=== PATIENT | male | born 1990 | race American Indian/Alaskan Native ===

== ENCOUNTER 2018-07-19 20:10 | Emergency (ER) | payer SELFPAY ==
[2018-07-19] MEDS ORDERED: ZOFRAN ODT PO ONE (20:45)
[2018-07-19 20:46] VITALS: BP 148/82
--- NOTE | 2018-07-19 20:48 | Emergency Department Report ---
Blank Doc - Documentation Documentation: 27 y/o male with N/V/D and abd pain all day. Smoke weed every day. Feels weak. ordered: N/V/D protocol
[2018-07-19] MEDS ORDERED: ZOFRAN ODT ONE (20:49)
== END 2018-07-19 22:05 ==
LOC: ED 20:10
DX: R53.1 Weakness (principal); Z53.21 Procedure and treatment not carried out due to patient leaving prior to being seen by health care provider
CPT/HCPCS: Q0162

== ENCOUNTER 2019-01-24 21:04 | Emergency (ER) | payer SELFPAY ==
[2019-01-24] MEDS ORDERED: ONDANSETRON 4 MG/2 ML INJ IV ONE (22:11)
[2019-01-24] MEDS ORDERED: SODIUM CHLORIDE 0.9% 1000 ML 1,000 ML IV ONE (22:11)
[2019-01-24] MEDS ORDERED: FAMOTIDINE 20 MG/2 ML INJ IV ONE (22:11)
[2019-01-24] MEDS ORDERED: MORPHINE 4 MG/1 ML INJ IV ONE (22:11)
--- NOTE | 2019-01-24 22:11 | Event Note ---
ED Screening Note Date of service: 01/24/19 Time: 22:07 ED Screening Note: PATIENT HERE REPORT 1 LITER DAILY X 5 DAYS AND SMOKING WEED. REPORTS FEELING WEAK, DEHYDRATED, ABDOMINAL RT FLANK PAIN.. REPORTS CHILLS . PAIN /10. TOOK PEPTOBISMOL DID NOT WORK ABDOMEN: NTTP. NL BS. NO CVA TENDERNESS. This initial assessment/diagnostic orders/clinical plan/treatment(s) is/are subject to change based on patients health status, clinical progression and re- assessment by fellow clinical providers in the ED. Further treatment and workup at subsequent clinical providers discretion. Patient/guardian urged not to elope from the ED as their condition may be serious if not clinically assessed and man aged. Initial orders include: LABS, int, iv
[2019-01-24] MEDS ORDERED: ALUM-MAG HYDROXIDE-SIMETHICONE 200-200-20MG/5ML ORAL LIQD 30 ML PO ONE (22:13)
[2019-01-24] MEDS ORDERED: LIDOCAINE VISCOUS 2% 15 ML ORAL LIQD PO ONE (22:13)
[2019-01-24] MEDS ORDERED: DICYCLOMINE 10 MG CAP PO ONE (22:13)
[2019-01-24 23:18] LABS: Basophils % (Auto) 0.5 % (0.0-1.8); Hematocrit 51.9 % (35.5-45.6); Hemoglobin 17.5 gm/dl (11.8-15.2); Lymphocytes # (Auto) 1.3 K/mm3 (1.2-5.4); Lymphocytes % (Auto) 15.9 % (13.4-35.0); Mean Corpuscular HGB Conc 34 % (32-34); Mean Corpuscular Volume 90 fl (84-94); Monocytes # (Auto) 1.2 K/mm3 (0.0-0.8); Monocytes % (Auto) 14.2 % (0.0-7.3); Platelet Count 295 K/mm3 (140-440); Red Blood Count 5.75 M/mm3 (3.65-5.03)
[2019-01-24 23:37] LABS: Alanine Aminotransferase 30 units/L (7-56); BUN/Creatinine Ratio 20; Blood Urea Nitrogen 22 mg/dL (9-20); Calcium 9.9 mg/dL (8.4-10.2); Hemolysis Index 15
[2019-01-24 23:42] LABS: Bilirubin,Direct < 0.2 mg/dL (0-0.2)
[2019-01-24] MEDS ORDERED: ONDANSETRON 4 MG/2 ML INJ IM ONE (23:44)
[2019-01-24] MEDS ORDERED: DICYCLOMINE 20 MG/2 ML INJ IM ONE (23:44)
--- NOTE | 2019-01-24 23:51 | Emergency Department Report ---
ED N/V/D HPI - General Chief complaint: Abdominal Pain Stated complaint: VOMITING Time Seen by Provider: 01/24/19 22:05 Source: patient Mode of arrival: Ambulatory Limitations: No Limitations - History of Present Illness Initial comments: 28-year-old male presents to ED with nausea and vomiting 2 days. Patient states he was binge drinking alcohol over the last 6 days. He states he does not normally drink on a daily basis. He now reports nausea, vomiting, and bilateral flank pain. Patient denies fever or diarrhea. Patient states he has been able to tolerate small amounts of Sprite. MD complaint: nausea, vomiting -: days(s) (2) Description of Vomiting: watery Associated Abdominal Pain: Yes Location: flank Severity: moderate Quality: cramping Consistency: constant Improves with: none Worsens with: eating Context: alcohol abuse - Related Data Previous Rx's Medication Instructions Recorded Last Taken Type Dicyclomine [Bentyl] 20 mg PO QID PRN #20 tablet 01/24/19 Unknown Rx Ondansetron [Zofran Odt] 4 mg PO Q8HR PRN #20 tab.rapdis 01/24/19 Unknown Rx Allergies Allergy/AdvReac Type Severity Reaction Status Date / Time aspirin Allergy Diarrhea Verified 07/19/18 20:46 ED Review of Systems ROS: Stated complaint: VOMITING Other details as noted in HPI Comment: All other systems reviewed and negative Constitutional: denies: chills, fever Gastrointestinal: abdominal pain, nausea, vomiting. denies: diarrhea ED Past Medical Hx - Surgical History Past Surgical History?: No - Social History Smoking Status: Never Smoker Substance Use Type: Alcohol, Marijuana - Medications Home Medications: Home Medications Medication Instructions Recorded Confirmed Last Taken Type Dicyclomine [Bentyl] 20 mg PO QID PRN #20 tablet 01/24/19 Unknown Rx Ondansetron [Zofran Odt] 4 mg PO Q8HR PRN #20 tab.rapdis 01/24/19 Unknown Rx ED Physical Exam - General Limitations: No Limitations General appearance: alert, in no apparent distress - Head Head exam: Present: atraumatic, normocephalic - Eye Eye exam: Present: normal appearance, EOMI - ENT ENT exam: Present: mucous membranes moist - Neck Neck exam: Present: normal inspection - Respiratory Respiratory exam: Present: normal lung sounds bilaterally. Absent: respiratory distress - Cardiovascular Cardiovascular Exam: Present: regular rate, normal rhythm - GI/Abdominal GI/Abdominal exam: Present: soft. Absent: distended, tenderness - Extremities Exam Extremities exam: Present: normal inspection - Back Exam Back exam: Absent: CVA tenderness (R), CVA tenderness (L) - Neurological Exam Neurological exam: Present: alert, oriented X3 - Psychiatric Psychiatric exam: Present: normal affect, normal mood ED Course Vital Signs 01/24/19 01/24/19 01/25/19 22:05 23:52 01:20 Temperature 97.6 F 98 F Pulse Rate 68 78 Respiratory 18 20 16 Rate Blood Pressure 140/91 Blood Pressure 128/85 [Left] O2 Sat by Pulse 99 100 Oximetry ED Medical Decision Making - Lab Data Result diagrams: 01/24/19 22:31 01/24/19 22:31 - Medical Decision Making Abdomen is benign. Vital signs are normal. Labs normal. Patient already reports that he is tolerating by mouth. Zofran and Bentyl given. Patient advised against binge drinking alcohol. Outpatient follow-up advised. Return precautions given. - Differential Diagnosis pancreatitis, gastritis, dehydration Critical care attestation.: If time is entered above; I have spent that time in minutes in the direct care of this critically ill patient, excluding procedure time. ED Disposition Clinical Impression: Gastritis Disposition: DC-01 TO HOME OR SELFCARE Is pt being admited?: No Condition: Stable Instructions: Gastritis (ED), Abuse of Alcohol (ED) Prescriptions: Dicyclomine [Bentyl] 20 mg PO QID PRN #20 tablet PRN Reason: abdominal pain Ondansetron [Zofran Odt] 4 mg PO Q8HR PRN #20 tab.rapdis PRN Reason: Vomiting Referrals: PRIMARY CARE,MD [Primary Care Provider] - 3-5 Days
[2019-01-25 01:21] VITALS: BP 128/85
== END 2019-01-25 01:23 | disposition home or self-care (01) ==
LOC: ED 21:04
DX: K29.70 Gastritis, unspecified, without bleeding (principal); F12.90 Cannabis use, unspecified, uncomplicated; Z79.899 Other long term (current) drug therapy; Z88.6 Allergy status to analgesic agent
CPT/HCPCS: 36415; 80048; 80076; 83690; 85025; 96372; 99283; J0500; J2405

== ENCOUNTER 2020-05-04 12:07 | Emergency (ER) | payer SELFPAY ==
[2020-05-04 12:36] VITALS: BP 149/71
--- NOTE | 2020-05-04 12:44 | Emergency Department Report ---
Chief Complaint: Medical Clearance Stated Complaint: HAND INJURY WK RELEASE Time Seen by Provider: 05/04/20 12:41 - HPI History of Present Illness: Patient is a 29-year-old male who presents emergency room for a work release note. He states that last week he hit his hand against something and he called out of work for 3 days and now reports emergency room a week later saying that he needs an excuse for the 3 days he called out. He states he has no pain in his hand currently. He states he is moving the hand without difficulty. He denies any hand swelling. He denies any numbness or weakness. No past medical history. Allergy to aspirin. Vitals are stable On exam: no bony ttp of the LUE, Full range of motion LUE, no edema, no ecchymosis, neurovascularly intact Patient is presenting for a return to work note Advised patient that he would need to follow-up with a primary care doctor or a orthopedic for a return to work note pt is presenting with a nonmedical emergency He has no clinical signs of acute fracture or dislocation He has no clinical signs of septic joint or gout No signs of cellulitis or infection Patient given the appropriate resources Discussed strict return precautions Medical screening examination performed there is no threat to life or limb at this time - Exam Vital Signs: Vital Signs 05/04/20 12:35 Temperature 98.0 F Pulse Rate 71 Respiratory 16 Rate Blood Pressure 149/71 O2 Sat by Pulse 100 Oximetry MSE screening note: Focused history and physical exam performed. ED Disposition for MSE Clinical Impression: Encounter for medical screening examination Disposition: Z- MED SCREENING EXAM-LEFT Is pt being admited?: No Does the pt Need Aspirin: No Condition: Stable Additional Instructions: Please follow-up with a primary care doctor. Please follow-up with orthopedic doctor. Return to emergency room for any new or worsening symptoms. walk in clinic: [facility] Address: [address] [place] [id number] Referrals: JAMES CONTEH MD [Staff Physician] - 3-5 Days [facility] [Provider Group] - 3-5 Days TWAN FALLON MD [Staff Physician] - 3-5 Days [facility] [Provider Group] - 3-5 Days Time of Disposition: 12:43 Print Language: MARSHALLESE
== END 2020-05-04 13:07 | disposition left against medical advice (07) ==
LOC: ED 12:07
DX: M79.89 Other specified soft tissue disorders (principal); Z53.21 Procedure and treatment not carried out due to patient leaving prior to being seen by health care provider